=== PATIENT | female | born 1980 | race Caucasian/White ===

== ENCOUNTER 2019-11-20 20:07 | Emergency (ER) | payer OTHER ==
[~2019-11-20] VITALS: Ht 157.5 cm; Wt 61.2 kg
[~2019-11-20 20:07] MED LIST: INTESTINEX680 MG PO; ZANTAC150 MG PO
[2019-11-20] MEDS ORDERED: ZITHROMAX500 MG PO (22:45)
[2019-11-20] MEDS ORDERED: MUCINEX1200 MG PO (22:45)
[2019-11-20] MEDS ORDERED: PROMETH-CODEIN 65 ML PO (22:45)
== END 2019-11-20 22:53 | disposition home or self-care (01) ==
LOC: ER 20:07
DX: R50.9 Fever, unspecified (principal); B96.0 Mycoplasma pneumoniae [M. pneumoniae] as the cause of diseases classified elsewhere

== ENCOUNTER 2022-10-09 18:43 | Emergency (ER) | payer OTHER ==
[~2022-10-09] VITALS: Ht 157.5 cm; Wt 63.5 kg
[~2022-10-09 18:43] MED LIST changes: +MUCINEX1200 MG PO; +PROMETH-CODEIN 65 ML PO; +ZITHROMAX500 MG PO
== END 2022-10-09 19:58 | disposition home or self-care (01) ==
LOC: ER 18:43
DX: R19.7 Diarrhea, unspecified (principal); R51.9 Headache, unspecified; R10.9 Unspecified abdominal pain

== ENCOUNTER 2022-10-10 23:10 | Emergency (ER) | payer OTHER ==
[~2022-10-10] VITALS: Ht 157.5 cm; Wt 65.8 kg
[2022-10-11] MEDS ORDERED: PEPCID AC20 MG PO (07:20)
[2022-10-11] MEDS ORDERED: IMODIUM A-D2 M2 PO (07:20)
== END 2022-10-11 08:08 | disposition home or self-care (01) ==
LOC: ER 23:10
DX: E86.0 Dehydration (principal); K52.89 Other specified noninfective gastroenteritis and colitis

== ENCOUNTER 2022-10-12 14:58 | Emergency (ER) | payer OTHER ==
[~2022-10-12] VITALS: Ht 157.5 cm; Wt 65.8 kg
[~2022-10-12 14:58] MED LIST changes: +IMODIUM A-D2 M2 PO; +PEPCID AC20 MG PO
[2022-10-12] MEDS ORDERED: METRONIDAZOLE500 MG PO (22:15)
[2022-10-12] MEDS ORDERED: LEVSIN/SL0.125 MG SL (22:15)
[2022-10-12] MEDS ORDERED: ONDANSETRON ODT8 MG PO (22:15)
[2022-10-12] MEDS ORDERED: PEPCID AC20 MG PO (22:15)
[2022-10-12] MEDS ORDERED: INTESTINEX680 M1 PO (22:16)
== END 2022-10-12 22:30 | disposition home or self-care (01) ==
LOC: ER 14:58
DX: K52.9 Noninfective gastroenteritis and colitis, unspecified (principal); Z20.822 Contact with and (suspected) exposure to COVID-19

== ENCOUNTER 2024-12-08 21:48 | Emergency (ER) | payer OTHER ==
[~2024-12-08] VITALS: Ht 157.5 cm; Wt 63.5 kg
[~2024-12-08 21:48] MED LIST changes: +INTESTINEX680 M1 PO; +LEVSIN/SL0.125 MG SL; +METRONIDAZOLE500 MG PO; +ONDANSETRON ODT8 MG PO
[2024-12-09] MEDS ORDERED: KETOROLAC TROMETHAMINE 60 MG VIAL IM STA (05:47)
[2024-12-09] MEDS ORDERED: CEFTRIAXONE SODIUM 1,000 MG VIAL IM STA (05:48)
== END 2024-12-09 05:57 | disposition home or self-care (01) ==
LOC: ER 21:51
DX: J03.90 Acute tonsillitis, unspecified (principal)

== ENCOUNTER 2025-07-31 15:51 | Emergency (ER) | payer OTHER ==
[~2025-07-31] VITALS: Ht 157.5 cm; Wt 59.9 kg
[2025-07-31] MEDS ORDERED: CETIRIZINE HCL 5 MG/5 ML ML PO ONE (16:15)
[2025-07-31] MEDS ORDERED: GUAIFENESIN/DEXTROMETHORPHAN 100MG/10ML BLIST.PACK PO ONE ×2 (16:15→17:11)
[2025-07-31] MEDS ORDERED: CETIRIZINE HCL 5MG/5ML BLIST.PACK PO ONE (17:11)
[2025-07-31 17:45] LABS: BASO % 0.5 % (0.1-1.2); EOS # 0.07 (0.04-0.54); EOS % 0.9 % (0.7-7.0); LYMPH # 1.97 (1.18-3.74); LYMPH % 26.5 % (19.3-53.1); MEAN PLATELET VOLUME 9.00 fl (9.4-12.4); MONO # 0.88 (0.24-0.82); MONO % 11.9 % (4.7-12.5); NEUT # 4.44 (1.56-6.13); NEUT % 59.9 % (34.0-71.1); RED CELL DISTRIBUTION WIDTH 11.6 % (11.6-14.4)
[2025-07-31 19:18] LABS: COVID-19 AG NEGATIVE (NEGATIVE)
[2025-07-31] MEDS ORDERED: INTESTINEX680 M1 PO (20:14)
[2025-07-31] MEDS ORDERED: ZYRTEC10 MG PO (20:14)
[2025-07-31] MEDS ORDERED: TUSSIN DM LIQU118 ML PO (20:14)
== END 2025-07-31 21:15 | disposition home or self-care (01) ==
LOC: ER 15:51
PROVIDERS: General Practice
DX: J37.0 Chronic laryngitis (principal); J00 Acute nasopharyngitis [common cold]; Z20.822 Contact with and (suspected) exposure to COVID-19